=== PATIENT | female | born 1955 | race Caucasian/White ===

== ENCOUNTER → 2017-03-30 | Outpatient (CLI) | payer OTHER ==
[~2017-03-30] MED LIST: CALCIUM 600 +1 EAC1 PO; HYDROCHLOROTHIA25 M1 PO; LISINOPRIL10 MG PO; LISINOPRIL20 MG PO; MULTIVITAMINS PO; PERCOCET 5-3251 EACH PO
== END ==
LOC: NUC 10:22
DX: S82.852A Displaced trimalleolar fracture of left lower leg, initial encounter for closed fracture (principal); M85.89 Other specified disorders of bone density and structure, multiple sites; Z78.0 Asymptomatic menopausal state; X58.XXXA Exposure to other specified factors, initial encounter; Y93.89 Activity, other specified; Y92.89 Other specified places as the place of occurrence of the external cause; Y99.8 Other external cause status